=== PATIENT | male | born 1975 | race Caucasian/White ===

== ENCOUNTER 2018-02-17 19:03 | Emergency (ER) | payer MEDICARE, OTHER ==
[2018-02-17 19:30] VITALS: BP 118/73; PULSE 93; RESP 18; TEMP 98.4; O2SAT 99
[2018-02-17] MEDS ORDERED: KETOROLAC TROMETHAMINE 60 MG/2 ML (IM) VIAL IM ONE (19:45)
--- NOTE | 2018-02-17 19:50 | PD ---
HPI Chief Complaint: Musculoskeletal Complaint Time Seen by Provider: 19:35 Travel History International Travel<30 days: No Contact w/Intl Traveler<30days: No Traveled to known affect area: No History of Present Illness HPI 42-year-old male presents emergency department with worsening right knee pain and swelling and stiffness over the past couple of days. 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 Patient also has history of gout for which he takes allopurinol. Patient denies fever, chills, or other symptoms. He denies any specific injury. Current pain is 7 out of 10. It is worse with weightbearing and ambulation. He is allergic to azithromycin. [facility] Past Medical History Cardiovascular Problems: Yes (TRANSPLANT/STENTS) Social History Alcohol Use: Yes Tobacco Use: Yes Substance Use: No Allergies-Medications (Allergen,Severity, Reaction): Coded Allergies: azithromycin (Verified Allergy, Unknown, 02/17/18) heart/kidney transplant Reported Meds & Prescriptions Reported Meds & Active Scripts Active Prednisone 20 Mg Tab 20 Mg PO BID 5 Days Review of Systems Except as stated in HPI: all other systems reviewed are Neg General / Constitutional: No: Fever Eyes: No: Visual changes HENT: No: Headaches Cardiovascular: No: Chest Pain or Discomfort Respiratory: No: Shortness of Breath Gastrointestinal: No: Abdominal Pain Genitourinary: No: Dysuria Musculoskeletal: Positive: Arthralgias, Pain (See history of present illness per) Skin: No Rash Neurologic: No: Weakness Psychiatric: No: Depression Endocrine: No: Polydipsia Hematologic/Lymphatic: No: Easy Bruising Physical Exam Narrative GENERAL: Patient appears in mild distress. SKIN: Warm and dry. Normal color. Normal turgor. HEAD: Atraumatic. Normocephalic. EYES: Pupils equal and round. No scleral icterus. No injection or drainage. ENT: No nasal bleeding or discharge. Mucous membranes pink and moist. Pharynx is clear. Airway is patent. NECK: Trachea midline. Supple and nontender. CARDIOVASCULAR: Regular rate and rhythm. RESPIRATORY: No accessory muscle use. Clear to auscultation. Breath sounds equal bilaterally. GASTROINTESTINAL: Abdomen soft, non-tender, nondistended. Hepatic and splenic margins not palpable. MUSCULOSKELETAL: Extremities without clubbing, cyanosis, or edema. No obvious deformities. Right knee appears somewhat swollen with mild effusion noted. No laxity is appreciated. Range of motion is full. No crepitus is noted. There is some mild warmth with palpation over the knee joint, but no erythema. NEUROLOGICAL: Awake and alert. No obvious cranial nerve deficits. Motor grossly within normal limits. Five out of 5 muscle strength in the arms and legs. Normal speech. PSYCHIATRIC: Appropriate mood and affect; insight and judgment normal. Data Data Last Documented VS Vital Signs Date Time Temp Pulse Resp B/P (MAP) Pulse Ox O2 Delivery O2 Flow Rate FiO2 02/17/18 19:30 98.4 93 18 118/73 (88) 99 Orders Orders Ketorolac Inj (Toradol Inj) (02/17/18 19:45) Ed Discharge Order (02/17/18 19:52) [facility] Medical Decision Making Medical Screen Exam Complete: Yes Emergency Medical Condition: Yes Differential Diagnosis Right knee arthrosis. Gouty arthritis. Effusion. Narrative Course Patient is given Toradol 60 mg IM now. Patient will be continued on prednisone 20 mg twice daily for 5 days. Patient should ice his knee frequently through the day. Patient can take extra strength Tylenol as well as needed for pain. Work note was given for tomorrow. Patient to follow-up if symptoms persist or worsen. Diagnosis Primary Impression: Arthritis of right knee Patient Instructions: General Instructions, Osteoarthritis (ED), Swollen Knee Joint (ED) Departure Forms: Work Release Enter return to work date: Feb 19, 2018 Additional Instructions: Patient is given Toradol 60 mg IM now. Patient will be continued on prednisone 20 mg twice daily for 5 days. Patient should ice his knee frequently through the day. Patient can take extra strength Tylenol as well as needed for pain. Work note was given for tomorrow. Patient to follow-up if symptoms persist or worsen. Med/Other Pt SpecificInfo: Prescription(s) given Scripts Prednisone (Prednisone) 20 Mg Tab 20 MG PO BID for 5 Days, #10 TAB 0 Refills Prov: Holden Templeton MD 02/17/18 Disposition: 01 DISCHARGE HOME Condition: Stable Jamin Balnc Feb 17, 2018 19:50
[2018-02-17] MEDS ORDERED: PRED20 PO (19:51)
[2018-02-17] MEDS ORDERED: MYCO360 PO (20:07)
[2018-02-17] MEDS ORDERED: PLAV75TA29 PO (20:07)
[2018-02-17] MEDS ORDERED: ASPI-183 PO (20:07)
[2018-02-17] MEDS ORDERED: PRED5TAB PO (20:07)
[2018-02-17] MEDS ORDERED: ALLO100T PO (20:07)
[2018-02-17] MEDS ORDERED: TACR0.5 PO (20:07)
[2018-02-17] MEDS ORDERED: BUME1TAB PO (20:07)
== END 2018-02-17 20:17 | disposition home or self-care (01) ==
LOC: NEPK 19:03
DX: M17.11 Unilateral primary osteoarthritis, right knee (principal); Z72.0 Tobacco use
CPT/HCPCS: 96372; 99283; J1885